=== PATIENT | female | born 1995 | race Hispanic/Latino ===

== ENCOUNTER 2021-01-18 11:39 | Day surgery (SDC) | payer BC, MEDICAID ==
[2021-01-18 12:02] VITALS: BMI 33.0
[2021-01-18] MEDS ORDERED: hydrALAZINE 20 MG/ML VIAL SLOW IVP PRN (12:12)
== END 2021-01-18 13:13 | disposition home health service (06) ==
LOC: CSHLD/OP 11:39
PROVIDERS: ATTEND Obstetrics & Gynecology
DX: O46.93 Antepartum hemorrhage, unspecified, third trimester (principal); O34.211 Maternal care for low transverse scar from previous cesarean delivery; Z3A.31 31 weeks gestation of pregnancy
CPT/HCPCS: 99282